=== PATIENT | female | born 1975 | race American Indian/Alaskan Native ===

== ENCOUNTER 2019-10-06 18:05 | Emergency (ER) | payer SELFPAY | END 2019-10-06 18:53 | disposition left against medical advice (07) | LOC: ED 18:05 | DX: R51 Headache (principal); R50.9 Fever, unspecified; Z53.21 Procedure and treatment not carried out due to patient leaving prior to being seen by health care provider ==

== ENCOUNTER 2021-11-08 17:12 | Emergency (ER) | payer SELFPAY ==
[2021-11-08 17:19] VITALS: BP 140/95
== END 2021-11-08 19:19 | disposition left against medical advice (07) ==
LOC: ED 17:12
DX: G43.909 Migraine, unspecified, not intractable, without status migrainosus (principal); Z53.21 Procedure and treatment not carried out due to patient leaving prior to being seen by health care provider